=== PATIENT | female | born 1965 | race Caucasian/White ===

== ENCOUNTER 2023-10-02 20:36 | Observation (INO) | payer BC, SELFPAY ==
[2023-10-02] VITALS (8 sets, daily range): BP systolic 92–150; BP diastolic 58–93; BMI 34.6; BMI 34.5
[2023-10-02 13:24] LABS: % Basophils 0.9 % (0-2); % Eosinophils 0.5 % (0-6); % Immature Granulocytes 0.2 % (0-0.5); % Lymphocytes 29.1 % (20.5-51.1); % Monocytes 6.2 % (1.7-9.3); % Neutrophils 63.1 % (42.2-75.2); Absolute Basophils 0.1 10^3/uL (0-0.2); Absolute Lymphocytes 1.9 10^3/uL (1.2-3.4); Absolute Monocytes 0.4 10^3/uL (0.1-0.6); Absolute Neutrophils 4.2 10^3/uL (1.4-6.5); Hematocrit 42.3 % (37.0-47.0); Hemoglobin 15.3 g/dL (12.0-16.0); Mean Corp Hgb Conc. 36.2 g/dL (33.0-37.0); Mean Corpuscular Volume 85.8 fL (81.0-99.0); Nucleated Red Blood Cells % 0 %; Platelet Count 246 10^3/uL (130-400); Red Blood Cell Count 4.93 10^6/uL (4.20-5.40); Red Cell Dist. Width 12.4 % (11.5-14.5); White Blood Cell Count 6.6 10^3/uL (4.8-10.8)
[2023-10-02 13:38] LABS: ALT (SGPT) 74 U/L (0-35); AST (SGOT) 49 U/L (14-36); Albumin 4.3 g/dl (3.5-5.0); Alkaline Phosphatase 116 U/L (38-126); Blood Urea Nitrogen 14 mg/dl (7-17); Carbon Dioxide 26 mmol/L (22-30); Chloride 106 mmol/L (98-107); Glucose 149 mg/dl (70-99); Lipase 210 U/L (23-300); Sodium 137 mmol/L (135-145); Total Bilirubin 0.9 mg/dl (0.2-1.3); Total Protein 6.9 g/dl (6.3-8.2); eGFR > 60.00
[2023-10-02 13:48] LABS: Troponin I < 0.012 ng/ml
--- NOTE | 2023-10-02 14:44 | ED.GENMED ---
History of Present Illness
General
Chief Complaint: Abdominal Pain
Source: patient
Exam Limitations: none
Time Seen by Provider: 10/02/23 14:34
Nursing documentation reviewed up to this point in time: agreed with
Travel History
Have you had any contact with someone who has COVID-19?: No
Do you have any symptoms of coronavirus? Fever > 100 degrees, chills, cough, shortness of breath, sore throat, loss of taste or smell, muscle aches, or headache?: No
History of Present Illness
History of Present Illness:
58-year-old female presents with right upper abdominal pain onset around 6 AM sharp to go into her chest back and shoulder also in her right mid abdomen no fever no nausea or vomiting similar less severe episodes before she has had a PE previously
was treated and her stopped after consultation with hematology, so was her gallbladder as well as her appendix, last night she had half a beer, did not really enjoy it she states, pain was for a few hours around 6 AM stop and then came back only
mild pain now
Past History
Past History
ED Past Medical History: Asthma and Other (PE)
ED Past Surgical History: Gynecological; Negative Appendectomy, Bowel resection, Cardiac or Cholecystectomy
Social History
Tobacco: Non-smoker
Alcohol: Occasional
Drug: None
Personal:
Living: with family
Employment: Employed (land surveyor assistant)
Family History
Family History: Other
Review of Systems
Review of Systems
All Other Systems: Not applicable
Constitutional: Denies fever or fatigue
Respiratory: Reports trouble breathing
Cardiac: Reports chest pain; Denies syncope
ABD/GI: Reports abdominal pain; Denies vomiting
: Reports no symptoms
Musculoskeletal: Reports back pain
Skin: Reports no symptoms
Endocrine: Reports no symptoms
Hematologic/Lymphatic: Reports no symptoms
Phy Exam
Physical Exam
Physical Exam:
Physical Exam
General: no apparent distress, not acutely ill
Neck: No jaundice
Heart: s1/s2 regular rate and rhythm, no murmur. equal radial pulses.
Lungs: no acute respiratory distress. clear bilaterally
Abdomen: Mild tenderness right upper
Neuro: alert and oriented. no focal neurological deficits
Skin: no rash
Psychiatric: well kept. interactive and cooperative
Extremities: no edema.
Course
Orders/Labs/Results
Orders:
Orders
10/02/23 13:07
Electrocardiogram (*1) Urgent
Reason for Study: Abdominal Pain
EKG- Treatment ONCE
10/02/23 13:14
Complete Blood Count/With Diff Urgent
Comprehensive Metabolic Panel Urgent
Lipase Urgent
Troponin I Urgent
10/02/23 14:43
CT Chest Pe Study Urgent
Comment:
Reason For Exam: Pain prior PE
10/02/23 14:44
US Abdomen Complete/Upper Urgent
Reason For Exam: Right upper quadrant pain
10/02/23 17:05
HYDROmorphone [Dilaudid] 1 mg IV NOW STA
Ondansetron Injectable [Zofran] 4 mg IV NOW STA
Abnormal Lab Results
10/02/23
13:14
Glucose 149 H mg/dl
(70-99)
AST 49 H U/L
(14-36)
ALT 74 H U/L
(0-35)
10/02/23 13:14
10/02/23 13:14
Vital Signs
Initial and Last Documented VS:
Initial Vital Signs
Temp Pulse Resp Pulse Ox
98.1 F 97 18 95
10/02/23 13:05 10/02/23 13:05 10/02/23 13:05 10/02/23 13:05
Last Documented Vital Signs
Temp Pulse Resp BP Pulse Ox
98.1 F 78 20 150/93 97
10/02/23 13:05 10/02/23 16:52 10/02/23 16:52 10/02/23 16:52 10/02/23 16:52
MDM/Problems Addressed
Differential Diagnosis Includes:
Biliary colic PE pneumonia pneumothorax pancreatitis
MDM/Problems Addressed:
Right-sided abdominal pain chest
Chronic conditions affecting care:
Prior PE
*Radiology
Radiology exam reviewed: preliminary read by ED provider
*Pulse Oximetry
Patient hypoxic: no
*EKG
Interpreted by ED Provider?: Yes
Interpretation: abnormal
Comparison EKG: no comparison EKG present
Heart Rate: 78
Rate: normal
Rhythm: sinus
Ischemia: no ischemia
*Chief Engineer Waterworks Interpretation
Rate: normal
Interpretation: normal
Heart Rate: 78
Rhythm: sinus
*Critical Care Note
Total Time (30-74mins, 75-104mins- exclusive of procedures): Not Applicable
Update Note
Update Note:
Chest CT report noted, limited view of the right upper quadrant no PE, my review of the ultrasound does not like shadowing stone full report pending
5 PM
Ultrasound reviewed with radiology likely acute cholecystitis
On exam patient with recurrent pain
She takes Rybelsus for prediabetes, no longer on Eliquis
Reviewed with on-call general surgery will be admitted
ED Attending Note
-
Portions of this chart may have been created with voice recognition software.� Occasional wrong word or��sound alike� substitutions may have occurred due to the inherent limitations of voice recognition software.
Discharge Plan
Departure
Prescriptions:
No Action
No Meds [No Current Medications]
azithromycin [Zithromax] 250 MG tablet
250 mg PO UD Qty: 1 0RF
Rx Instructions:
Take as directed
apixaban [Eliquis] 5 MG tablet
10 mg PO BID Qty: 30 0RF
Rx Instructions:
Take 10 mg twice a day for the first 7 days. Then take 5 mg twice a day thereafter
Referrals:
Ursula Salguero PA-C [Family Provider] -
Interventions
Interventions:
*Risk Screen - Suicide Last Done: 10/02/23 14:24
*General Assessment Last Done: 10/02/23 14:24
*Neglect/Abuse Screening Last Done: 10/02/23 14:24
ED- Fall Risk Assessment Last Done: 10/02/23 14:24
*ED COVID-19 Vaccine History Last Done: 10/02/23 14:24
GA-Myhqze-Btnrxwqgsq Assessment Last Done: 10/02/23 14:24
ED- Cardiac Assessment Last Done: 10/02/23 14:24
[2023-10-02] MEDS: ZOFRAN 4 MG IV (17:08)
[2023-10-02] MEDS: DILAUDID 1 MG IV (17:08)
[2023-10-02] MEDS: LEVAQUIN 100 IV (18:26)
--- NOTE | 2023-10-02 19:32 | HPS.HSE ---
Addendum entered and electronically signed by Neil Mtz MD 10/03/23 10:00:
N.p.o., IV fluids, IV antibiotics ordered.
Addendum entered and electronically signed by Neil Mtz MD 10/03/23 09:10:
I saw and examined the patient independently.
The Chocolate Production Machine Operator's note was reviewed and I agree with the note, assessment and plan except where noted below.
Comment: This is a 58-year-old female with a past medical history of a right leg DVT of unclear etiology, who presents to the emergency department yesterday with 1 day history of chest/epigastric/back/right upper quadrant pain that is not
postprandial. A similar episode in the past. After ruling out acute coronary syndrome and thoracic pathology a right upper quadrant ultrasound was performed which demonstrated cholelithiasis, and more concerning a positive sonographic Robles sign.
The patient denies Fever, Shortness Of Breath, Nausea, Vomiting, changes in urinary and bowel habits, unintentional weight loss, jaundice, icterus, acolic stools.
Will plan for a laparoscopic cholecystectomy and cholangiogram today.
Risks/Benefits/Alternatives, expected postoperative course and possible complications (bleeding, infection, injury to surrounding structures, acute/chronic pain) discussed at length. Patient wishes to proceed with surgery. All questions answered.
Consent obtained.
I spent roughly 60 minutes in total for the care of this patient today including direct patient care and counseling, reviewing labs, imaging, coordination of care, as well as documentation.
Original Note:
Family Physician
-
Family Physician: Ursula Salguero
Chief Complaint
-
'chest pain, Abdomen pain'
History of Present Illness
58 y/o patient with PMH of DVT Right leg in 2020 and pre-diabetes, presents to ER Right abdomen pain, started at 6 AM. States pain started at Right chest then radiated towards RUQ then to right upper back and shoulder. Associated with Nausea,
dizziness and SOB. States she took tums with out and relieve and the pain at the RUQ was intense that she decided to come to ER. Denies chills, fever, vomiting or nausea at this time. States she has poor appetite but is hungry at present. she has hx
of D&C, Ablation 2020. Was treated with Eliquis for one year for DVT. Patient no longer taking Eliquis.
US Abdomen:
Cholelithiasis. Borderline mildly thickened gallbladder wall, layering sludge, positive sonographic Robles's sign. Findings are highly suspicious for acute cholecystitis.
No biliary ductal dilatation.
Fatty infiltration of the liver and pancreas.
CT chest;
There is no CT evidence for pulmonary embolism. No aortic dissection.
Elevation of the right hemidiaphragm. Fatty infiltration of the liver.
Medical History
Past Medical History
Past Medical History: Reports NIDDM
Additional Past Medical History:
Pre-diabetes, DVT Right leg, Allergy Asthma Last Albuterol tx 6 months ago
Past Surgical History: Reports Other (D&C, Ablation )
Additional Past Surgical History:
D&C
Ablation 2020
Colonoscopy with in 5 years
Social History
Tobacco: Non-smoker
Alcohol: Occasional
Drug: None
Personal:
Living: With Family
Family History
Family History: Not pertinent
Allergies / Home Medications
Allergies reflects when Allergies were last updated in [facility].
Home Medications with original date entered in [facility]
Allergy/Medication List:
Allergies
Allergy/AdvReac Type Severity Reaction Status Date / Time
Sulfa (Sulfonamide Allergy Severe Anaphylaxis Verified 10/22/20 17:39
Antibiotics)
Penicillins Allergy Mild Rash Verified 10/22/20 17:39
Home Medications
semaglutide 3 mg tablet (Rybelsus) 3 mg PO DAILY 10/02/23
Review of Systems
-
History Source: Patient
A 12 point ROS was completed and negative except as noted: Yes
Constitutional: Reports No Symptoms
EENT: Reports No Symptoms
Respiratory: Reports No Symptoms
Cardiac: Reports No Symptoms and Chest Pain
Abdomen/GI: Reports No Symptoms, Abdominal Pain and Nausea
: Reports No Symptoms
Musculoskeletal: Reports No Symptoms
Skin: Reports No Symptoms
Neurological: Reports No Symptoms
Endocrine: Reports No Symptoms
Hematologic/Lymphatic: Reports No Symptoms
Psych: Reports No Symptoms
Physical Exam
Vital Signs
Vital Signs
Temp Pulse Resp BP Pulse Ox
98.1 F 85 18 109/91 97
10/02/23 13:05 10/02/23 17:30 10/02/23 17:30 10/02/23 17:00 10/02/23 17:30
Physical Exam
General: Well Developed, Well Nourished and No Apparent Distress
HEENT: NormoCephalic, Moist mucous membranes and Atraumatic
Respiratory: Clear and Non Labored Respirations
Cardiac: S1/S2 and Regular Rhythm
Breast: Deferred by me
GI: Soft, Non Tender (tender with deep palpation and Respiration RUQ), Non Distended and Normal Bowel Sounds
Rectal: Deferred by Provider
Genito-urinary: Deferred by me
Musculoskeletal: No Clubbing, No Cyanosis and No Edema
Skin: Warm and Dry
Neuro: Awake, AO x 3 and Nonfocal/grossly intact
Hematologic/Lymphatic: No Lymphadenopathy
Psych: Calm and Intact Judgment/Insight
Laboratory Results
-
10/02/23 13:14
10/02/23 13:14
Laboratory Results
Total Bilirubin 0.9 mg/dl (0.2-1.3) 10/02/23 13:14
AST 49 U/L (14-36) H 10/02/23 13:14
ALT 74 U/L (0-35) H 10/02/23 13:14
Alkaline Phosphatase 116 U/L (38-126) 10/02/23 13:14
Troponin I < 0.012 ng/ml 10/02/23 13:14
Lipase 210 U/L (23-300) 10/02/23 13:14
Data Reviewed
-
Diagnostic Radiology: Report Reviewed by me
Ultrasound: Report Reviewed by me
Lab Data: Labs Reviewed by me
Impression/Plan
-
58 y/o patient with pain in RUQ, radiating to right chest, right shoulder and right upper back, associated with nausea, poor appetite.
# Abdomen pain likely due to Acute Cholecystitis
-Continue IV Levaquin, IV Flagyl
-Continue Zofran
-Continue IV analgesics.
-NPO MN
-Admit under Dr. Tyson
# Pre-Diabetic
-Continue Semaglutide
# Asthma
-not taking any medication now
Full code
DVT Prophylaxis: hx of DVT
[2023-10-02] MEDS: FLAGYL 500 MG 100 IV (22:29)
--- NOTE | 2023-10-02 23:08 | TRANSFER ---
Received pt via stretcher from ED at 2100 dx of abd pain/ acute cholecystitis, spouse at bedside. Pt ambulatory. Denied pain. VS WNL. Introduced to room and staff. Call kohler within reach, bed in lowest position. Plan of care ongoing.
[2023-10-03] VITALS (10 sets, daily range): BP systolic 104–122; BP diastolic 55–81
[2023-10-03] MEDS: FLAGYL 500 MG 100 IV ×2 (05:25→14:19)
[2023-10-03 06:07] LABS: Hemoglobin 13.7 g/dL (12.0-16.0); Mean Corp Hgb Conc. 33.4 g/dL (33.0-37.0); Mean Corpuscular Hgb 30.4 pg (27.0-31.0); Mean Corpuscular Volume 90.9 fL (81.0-99.0); Mean Platelet Volume 10.4 fL (7.4-10.4); Platelet Count 224 10^3/uL (130-400); Red Blood Cell Count 4.51 10^6/uL (4.20-5.40); Red Cell Dist. Width 12.3 % (11.5-14.5); White Blood Cell Count 6.5 10^3/uL (4.8-10.8)
[2023-10-03 06:37] LABS: Blood Urea Nitrogen 13 mg/dl (7-17); Calcium 8.9 mg/dl (8.4-10.2); Carbon Dioxide 28 mmol/L (22-30); Chloride 106 mmol/L (98-107); Estimated Creatinine Clearance 76 ml/min; Glucose 81 mg/dl (70-99); Potassium 3.8 mmol/L (3.5-5.1); Sodium 139 mmol/L (135-145); eGFR > 60.00
[2023-10-03] MEDS: HEPARIN 5000 UNITS SC ×2 (09:28→16:56)
--- NOTE | 2023-10-03 12:02 | W.SUR.PREOP ---
Pre-Operative Surgical Note
-
I have examined this patient prior to the performance of the scheduled procedure.
The patient's condition is unchanged from the time of the current History and
Physical and the patient is able to undergo the scheduled procedure.
--- NOTE | 2023-10-03 13:18 | W.IMMPOSTOP ---
Surgical Immed Post Op Note
-
Primary Surgeon: Neil Mtz MD
Assisting Surgeon: None
Pre-op Diagnosis: Acute cholecystitis
Post-op Diagnosis: Same
Procedure Performed: Laparoscopic cholecystectomy with cholangiogram
Anesthesia Type: General
Specimen / Cultures: None
Estimated Blood Loss: 7 cc
Complications: None
Operative Findings: Critical view of safety obtained prior to a cholangiogram which demonstrated no biliary filling defects. Stump taken with a 5 mm clip followed by a 0 PDS Endoloop. 2 rents made in the gallbladder with spillage of bile and some
sludge but no stones. Suction till clear.
POST OP PLAN:
Imaging: None
Labs: Routine AM if still admitted.
Diet: Advance to Regular as tolerated
Analgesia: Tylenol 650mg q6 Parmjit, Shabnam 5mg q6 PRN, Dilaudid 0.5mg q2h PRN
Neuro/vascular checks: q4h
AC/AP: Hold Therapeutic AC, Ok for DVT PPx
Activity: Ad Nicci
Wound/Incisions/Drains: Routine
Abx: None
Dispo: RNF, anticipate discharge home later today after dinner or tomorrow pending clinical course.
--- NOTE | 2023-10-03 13:20 | OR.RPT ---
Operative Report
Operative Report
Patient Name: Vanda Luna
: 1965
Date of Operation: 10/03/2023
Preoperative Diagnosis: Acute cholecystitis
Postoperative Diagnosis: Same
Procedure(s):
Laparoscopic Cholecystectomy with Cholangiogram
Surgeon(s):
Dr. Mtz
Load Checker(s):
JALEN Amaya
Anesthesia: General
Estimated Blood Loss: 7 cc
Urine Output: None
Drains/Lines/Implants: None
Specimens:
1. Gallbladder and contents
HPI/Surgical Indications:
This is 58-year-old female who presents with 2 days of epigastric/right upper quadrant abdominal pain. Exam, labs and imaging are consistent with early acute cholecystitis. Risks/Benefits/Alternatives were discussed at length, and the patient
agreed to proceed with surgery.
Findings:
The patient was noted to have mild gallbladder inflammation with edema in the triangle of Calot. A Critical View of Safety was obtained. A cholangiogram showed no filling defects in the biliary system with the Left, Right Anterior, Right posterior
hepatic ducts, CHD, cystic duct and CBD all identified. There was brisk flow of dye into the duodenum.
Procedure Description:
The patient was brought to the Operating Room and placed in the supine position with one arm tucked. Following uneventful induction of general endotracheal anesthesia, an orogastric tube was placed. The abdomen was prepped and draped in the usual
sterile fashion. A timeout was performed confirming the procedure, consent, and that IV antibiotics were infused and sequential compression devices were confirmed to be on. The abdomen was entered using a left subcostal Veress technique followed by
a 5 mm right upper quadrant Optiview trochar. Pneumoperitoneum to 15 mmHg pressure was obtained without difficulty and we confirmed that no injury had occurred during our entry. The patient was positioned in reverse Trendelenberg and rotated with
the right side up slightly. 2 5mm trocars were then placed along the right subcostal margin, and a 12 mm port in the epigastric. A locking grasping forceps was placed on the fundus of the gallbladder where it was then retracted cephalad and to the
right. A small rent was made in the gallbladder during this part of the manipulation causing some spillage of bile which was suctioned up, and the gallbladder was decompressed. Using appropriate grasping instruments, the peritoneum overlying the
triangle of Calot was incised and extended superiorly on both the anterior and posterior gallbladder cedillo. The infundibulum was dissected off the cystic plate. The cystic triangle was dissected until a critical view of safety was achieved. The
cystic artery was medialized, dissected and controlled with 2 proximal clips and 1 distal. The cystic duct/gallbladder junction in turn was identified, dissected circumferentially and a clip was placed. A ductotomy was made and a cholangiocatheter
on an Polk clamp was inserted into the cystic duct. A C-arm was draped and brought into the field. An intra-operative cholangiogram was performed and was noted to have:
No filling defects in the biliary tree
No significant biliary dilation
Somewhat sluggish flow of contrast into the duodenum
Normal biliary anatomy
The catheter was then removed and the cystic duct was controlled with two clips. After ensuring both the artery and duct were divided, the gallbladder was freed from the liver using electrocautery. There was some spillage of bile and sludge, but
no spillage of stones. The gallbladder bed was inspected and excellent hemostasis was obtained. The right upper quadrant was flooded with saline and suctioned until clear. The gallbladder was extracted through the 12 mm trocar site using an
endocatch bag. The abdomen was again irrigated and excellent hemostasis was assured. All remaining trocars were then removed and the pneumoperitoneum was evacuated. The 12 mm trocar site was closed using 0 PDS suture. All trocar sites were closed
at the skin level using 4-0 Monocryl followed by Dermabond. Overall, the patient tolerated the procedure well and was taken to the Recovery Room postoperatively in stable condition.
I was the attending physician and performed the procedure with assistance from the VP PRODUCT MANAGEMENT above. I was present for all portions of the case other than skin closure.
Neil Mtz MD
[2023-10-03] MEDS: ZOFRAN 4 MG IV (13:40)
[2023-10-03] MEDS: DILAUDID 0.25 MG IV (13:42)
[2023-10-03] MEDS: COMPAZINE 5 MG IV (14:16)
[2023-10-03] MEDS: LEVAQUIN 100 IV (16:59)
== END 2023-10-03 19:46 | disposition home or self-care (01) ==
LOC: 2 SOUTH 20:36
PROVIDERS: Emergency Medicine; Nurse Practitioner Gerontology; ADMITTING PHYSICIAN Surgery; EMERGENCY PHYSICIAN Emergency Medicine; FAMILY PHYSICIAN Physician Assistant
DX: K80.00 Calculus of gallbladder with acute cholecystitis without obstruction (principal); K76.0 Fatty (change of) liver, not elsewhere classified; R10.11 Right upper quadrant pain; Z86.711 Personal history of pulmonary embolism; Z86.718 Personal history of other venous thrombosis and embolism; E11.9 Type 2 diabetes mellitus without complications; J45.909 Unspecified asthma, uncomplicated; Z88.0 Allergy status to penicillin; Z88.2 Allergy status to sulfonamides; Z79.85 Long-term (current) use of injectable non-insulin antidiabetic drugs
CPT/HCPCS: 47563; 88304; 71275; 74300; 76000; 76700; 80048; 80053; 83690; 84484; 85025; 85027; 93005; 96374; 96375; 99285; A4300; G0378; Q9967

== ENCOUNTER → 2024-06-01 07:15 | Outpatient (REF) | payer BC, SELFPAY | LOC: WDC 07:15 | PROVIDERS: ATTENDING PHYSICIAN Obstetrics & Gynecology; FAMILY PHYSICIAN Physician Assistant | DX: Z12.31 Encounter for screening mammogram for malignant neoplasm of breast (principal) | CPT/HCPCS: 77063; 77067 ==

== ENCOUNTER → 2024-07-20 07:53 | Outpatient (REF) | payer BC, SELFPAY | LOC: WDC 07:53 | PROVIDERS: ATTENDING PHYSICIAN Obstetrics & Gynecology; FAMILY PHYSICIAN Physician Assistant | DX: R92.2 Inconclusive mammogram (principal); R92.333 Mammographic heterogeneous density, bilateral breasts | CPT/HCPCS: 76641 ==

== ENCOUNTER → 2025-02-04 08:40 | Outpatient (REF) | payer BC, SELFPAY | LOC: RCS 08:40 | PROVIDERS: ATTENDING PHYSICIAN Physician Assistant | DX: R07.9 Chest pain, unspecified (principal); Z68.35 Body mass index [BMI] 35.0-35.9, adult; Z82.49 Family history of ischemic heart disease and other diseases of the circulatory system | CPT/HCPCS: 93017 ==

== ENCOUNTER → 2025-02-06 07:18 | Outpatient (REF) | payer BC, SELFPAY | LOC: HWRAD 07:18 | PROVIDERS: ATTENDING PHYSICIAN Physician Assistant | DX: E66.811 Obesity, class 1 (principal); K76.0 Fatty (change of) liver, not elsewhere classified | CPT/HCPCS: 76700 ==